=== PATIENT | male | born 1980 | race Hispanic/Latino ===

== ENCOUNTER 2018-10-19 22:17 | Emergency (ER) | payer OTHER ==
[~2018-10-19] VITALS: Ht 185.4 cm; Wt 107.0 kg
--- NOTE | 2018-10-20 00:28 | NUR ---
Patient arrived to the ED window upset, wishing to sign out against medical advice. Pt pending sacral x-ray after a mechanical fall. Pt states he no longer wishes to wait for an x-ray. Pt is upset he was not taken to a room. Numerous attempts made to deescalate pt- unsuccessful. Pt ambulatory with a steady gait and no neuro deficits
--- NOTE | 2018-10-20 00:30 | NUR ---
PT LEFT AMA AT THIS TIME. PT STATES HE WAS TIRED OF WAITING FOR ROOM AND XRAY TO BE TAKEN.
== END 2018-10-20 02:54 | disposition left against medical advice (07) ==
LOC: ER 22:17
DX: M54.5 Low back pain (principal); S33.5XXA Sprain of ligaments of lumbar spine, initial encounter; W12.XXXA Fall on and from scaffolding, initial encounter; Y99.0 Civilian activity done for income or pay
CPT/HCPCS: 99282